=== PATIENT | female | born 1995 | race Caucasian/White ===

== ENCOUNTER 2017-06-19 06:13 | Inpatient (IN) ==
[2017-06-19] MEDS ORDERED: ONDANSETRON 4 MG/2 ML VIAL IV PRN (07:24)
[2017-06-19] MEDS ORDERED: BUTORPHANOL 2 MG/ML VIAL IV PRN (07:29)
[2017-06-19] MEDS ORDERED: MEPERIDINE 50 MG/1 ML VIAL IV PRN (07:29)
[2017-06-19] MEDS ORDERED: OXYTOCIN/LR 20 UNIT/1,000 ML BAG IV SCH (07:30)
[2017-06-19] MEDS ORDERED: LACTATED RINGERS 1,000 ML IV SCH (07:30)
[2017-06-19 08:08] LABS: Basophils % 0.4 % (0.0-0.8); Eosinophils % 0.2 % (0.00-10.9); Hematocrit 38.4 VOL% (35.7-47.0); Hemoglobin 13.1 GM/DL (12.0-16.0); Immature Granulocytes % 0.6 %; Immature Granulocytes Absolute 0.06 #; Lymphocytes # 1.8 10*3/uL (1.4-4.0); Lymphocytes % 17.7 % (21.3-54.2); Mean Corpuscular HGB Conc 34.1 GM/DL (32-36); Mean Corpuscular Hemoglobin 30 PG (27-34); Mean Corpuscular Volume 87.9 FL (87-102); Mean Platelet Volume 10.4 FL (9.6-12.0); Monocytes # 0.7 10*3/uL (0.11-0.8); Monocytes % 6.7 % (1.7-12.7); Neutrophils # 7.4 10*3/uL (1.4-7.4); Neutrophils % 74.4 % (38.7-73.9); Platelet Count 220 T/CUMM (130-400); Red Blood Count 4.37 MC/CUMM (3.8-5.5); Red Cell Distribution Width 12.7 % (9.3-17.3); White Blood Count 9.9 T/CUMM (4-12)
[2017-06-19 08:49] LABS: Alanine Aminotransferase 12 U/L (13-56); Albumin 2.8 G/DL (3.4-5.0); Alkaline Phosphatase 292 U/L (45-117); Aspartate Amino Transferase 12 U/L (0-37); Bilirubin,Total < 0.39 MG/DL (0.2-1.0); Blood Urea Nitrogen 11 MG/DL (7-18); Calcium 8.9 MG/DL (8.5-10.1); Glucose 72 MG/DL (74-106); Osmolality,Calculated 272.7 MOS/KG (273-304); Potassium 4.4 MMOL/L (3.5-5.1); Sodium 138 MMOL/L (136-145); Total Protein 6.5 G/DL (6.4-8.3)
--- NOTE | 2017-06-19 09:23 | OB/GYN History & Physical ---
History of Present Illness Chief complaint: For elective induction of labor due to term . History of present illness: Ms. Hernandez is a 21 year old female who is a primigravida. Her GAL is 2016 for an estimated gestational age of 39 weeks and 4 days. The patient presents for elective induction of labor due to term . The risk and benefits have been thoroughly discussed with this patient and significant other , plan of care has been discussed with Dr. Barreto and all parties are in agreement with plan. She received her care at the [facility] and her course was uneventful. labs: She is a positive, rubella is immune, RPR is nonreactive, hepatitis B negative, HIV negative, GBS culture negative. Review of systems negative with exception of above. Home Medications Medication Instructions Recorded Confirmed Type Vit No.130/Iron/Folic 1 tablet PO DAILY 03/04/17 03/04/17 History [ Tablet] Allergies Allergy/AdvReac Type Severity Reaction Status Date / Time sulfamethoxazole Allergy Severe Swelling Verified 09/23/16 23:06 [From Bactrim] Throat,Body/Hives/High Fever trimethoprim [From Bactrim] Allergy Severe Swelling Verified 09/23/16 23:06 Throat,Body/Hives/High Fever 12 point system: reviewed and no additional remarkable complaints except as stated Medical,Surgical,& Family Hx - Medical History Psychological: History of: Anxiety Disorders, ADHD (Inattentive Type) Neurology: History of: Seizures Gastrointestinal: History of: GI Problems (ulcers, over active colon) - Surgical History HEENT Surgeries: Surgical HX of: Tonsilectomy & Adenoidectomy Orthopedic Surgeries: Surgical HX of;: Orthopedic Surgery (Knee surgery) - Family History Family History: Reports;: Family Cancer (GF), Family Diabetes (MGM), Family Hypertension (MOTHER) - Social History Smoking Status: Never smoker Frequency of Alcohol Use: None Type of Drug Use: None Marital Status: Single Lives With:: Significant Other Functional capacity: independent ambulation Exam WATER VESSEL CAPTAIN - Constitutional Vitals: Vital Signs Temp Pulse Resp BP Pulse Ox 06/19/17 08:00 97.0 F L 107 H 20 137/84 99 General appearance: no acute distress - Antepartum / Post Antepartum Exam Cervix - Dilatation: 5 cm Effacement: 80% Station: -1 Rupture: Intact Presentation: Vertex Heart Rate: 150s Breast: bilateral: normal Abdomen obstetrics: Present: bowel sounds normal Vagina: Present: normal moisture, discharge (Light lochia rubra) Uterus exam: Present: enlarged Anus/Rectum: Present: normal perianal skin - Head Head exam: Present: normal inspection - Respiratory Respiratory exam: Present: clear to auscultation bilaterally - Cardiovascular Cardiovascular exam: Present: regular rate and rhythm - GI/Abdominal GI/Abdominal exam: Present: normal bowel sounds, soft - Extremities Exam Extremities exam: Present: normal inspection - Back Exam Back exam: Present: normal inspection - Neurological Exam Neurological exam: Present: alert, oriented X3 - Psychiatric Psychiatric exam: Present: normal affect, normal mood - Skin Skin exam: Present: normal color, warm Assessment and Plan (1) 39 weeks gestation of Status: Acute Assessment and plan: Admit IV fluids IV Pitocin per protocol Artificial rupture membranes when appropriate Internal monitor is indicated Epidural anesthesia if desired IV pain meds if desired Anticipate Current Visit: Yes Results - Labs CBC & BMP: 06/19/17 08:01 06/19/17 08:01
[2017-06-19] MEDS ORDERED: CITRIC ACID/SODIUM CITRATE 30 ML UDCUP PO ONE (10:15)
[2017-06-19] MEDS ORDERED: ONDANSETRON 4 MG/2 ML VIAL IV ONE (10:15)
[2017-06-19] MEDS ORDERED: PROMETHAZINE 25 MG/1 ML VIAL IM ONE (10:15)
[2017-06-19] MEDS ORDERED: hydrOXYzine HCL 25 MG/1 ML VIAL IM PRN (10:15)
[2017-06-19] MEDS ORDERED: fentaNYL 2 MCG/ROPIV 0.2% EPID 150 ML EPIDURAL SCH (10:15)
[2017-06-19] MEDS ORDERED: diphenhydrAMINE 50 MG/1 ML VIAL IV PRN ×2 (10:15)
[2017-06-19] MEDS ORDERED: FAMOTIDINE 20 MG/2 ML VIAL IV ONE (10:15)
[2017-06-19] MEDS ORDERED: LACTATED RINGERS 1,000 ML IV ONE (10:15)
[2017-06-19] MEDS ORDERED: ePHEDrine 50 MG/ML AMP IV PRN (10:15)
--- NOTE | 2017-06-19 11:52 | Event Note ---
HPI: Ms. Lechuga presents to the labor department for elective induction of labor due to term . The risk and benefits of been thoroughly discussed with the patient and significant other, plan of care has been discussed with Dr. Barreto and all parties are in agreement plan. Stage I: The patient was admitted she received IV fluids and IV Pitocin per protocol. Artificial rupture membranes was performed clear fluid noted. She received an epidural for pain control. She progressed in labor with a CAT 1 tracing. She had an uneventful course of labor. Stage II the patient was complete and complained of present desire to push. She pushed for approximately 20 minutes after which time a second-degree midline episiotomy was performed; the infant's head was delivered. The mouth and nose were suctioned on the perineum. The remainder the was delivered at 1131, a viable female infant was noted. Apgars were 8 at 1 minute and 9 at 5 minutes. weight was 5 lbs. 13 oz. A cord pH was obtained and sent to the lab. The infant was then placed on the mom's abdomen for skin to skin bonding. Stage III: Spontaneous delivery of a Jimenez placenta with a three-vessel cord noted. Placenta was further examined appeared to be grossly intact. The vagina cervix inspected with no additional tears or lacerations noted. The episiotomy was repaired in the usual fashion. Epidural anesthesia remain in effect on repair. Estimated blood loss was approximately 150 cc. At the time of dictation mother and baby are both in stable condition.
[2017-06-19] MEDS ORDERED: ACETAMINOPHEN/CODEINE 300-30 MG TABLET PO PRN (11:54)
[2017-06-19 12:14] LABS: Cord Arterial Blood HCO3 17.2 MMOL/L
[2017-06-19 12:16] LABS: Cord Venous Blood HCO3 16.1 MMOL/L
[2017-06-19] MEDS ORDERED: oxyCODONE/ACETAMINOPHEN 5-325 MG TABLET PO PRN (15:12)
[2017-06-19] MEDS ORDERED: ACETAMINOPHEN 325 MG TABLET PO PRN (15:12)
[2017-06-19] MEDS ORDERED: DIPH/TET/ACEL PERT BOOSTER VACCINE 0.5 ML VIAL IM ONE (15:12)
[2017-06-19] MEDS ORDERED: LANOLIN 50% CREAM 0.3 OZ TUBE TOP PRN (15:12)
[2017-06-19] MEDS ORDERED: HYDROCORTISONE 2.5% RECTAL CREAM 30 GM TUBE TOP PRN (15:12)
[2017-06-19] MEDS ORDERED: BENZOCAINE 20%/MENTHOL 0.5% SPRAY 56 GM CAN TOP PRN (15:12)
[2017-06-19] MEDS ORDERED: WITCH HAZEL PADS 100/JAR TOP PRN (15:12)
[2017-06-19] MEDS ORDERED: BISACODYL 10 MG SUPP RECTAL PRN (15:12)
[2017-06-19] MEDS ORDERED: RHO(D) IMMUNE GLOBULIN 300 MCG SYRINGE IM ONE (15:12)
[2017-06-19] MEDS ORDERED: MEASLES/MUMPS/RUBELLA VACCINE 0.5 ML VIAL SUBCUT ONE (15:12)
--- NOTE | 2017-06-19 16:52 | Anesthesia Post-Op ---
Anesthesia Post OP - Post Ansesthetic Evaluation Patient seen in post op: Yes Resp: within normal limits CV: within normal limits Mental: within normal limits Temp: within normal limits [id number]-[id number]: within normal limits Nausea and Vomiting: within normal limits Pain: within normal limits
[2017-06-19] MEDS: IBUPROFEN 800 MG TABLET PO PRN (18:22)
[2017-06-19] MEDS: DOCUSATE SODIUM 100 MG CAPSULE PO SCH (20:59)
[2017-06-20] MEDS: IBUPROFEN 800 MG TABLET PO PRN ×2 (06:02→15:29)
[2017-06-20 06:10] LABS: Basophils % 0.3 % (0.0-0.8); Eosinophils % 0.3 % (0.00-10.9); Hematocrit 34.1 VOL% (35.7-47.0); Hemoglobin 11.6 GM/DL (12.0-16.0); Immature Granulocytes % 0.4 %; Immature Granulocytes Absolute 0.04 #; Lymphocytes # 1.8 10*3/uL (1.4-4.0); Lymphocytes % 18.5 % (21.3-54.2); Mean Corpuscular Hemoglobin 30 PG (27-34); Mean Corpuscular Volume 89.3 FL (87-102); Mean Platelet Volume 10.6 FL (9.6-12.0); Monocytes # 0.8 10*3/uL (0.11-0.8); Monocytes % 8.1 % (1.7-12.7); Neutrophils # 6.9 10*3/uL (1.4-7.4); Neutrophils % 72.4 % (38.7-73.9); Platelet Count 189 T/CUMM (130-400); Red Blood Count 3.82 MC/CUMM (3.8-5.5); Red Cell Distribution Width 12.9 % (9.3-17.3); White Blood Count 9.6 T/CUMM (4-12)
[2017-06-20] MEDS: DOCUSATE SODIUM 100 MG CAPSULE PO SCH ×2 (09:19→20:42)
--- NOTE | 2017-06-20 09:35 | OB/GYN Progress Note ---
Assessment and Plan (1) 39 weeks gestation of Status: Acute Assessment and plan: Admit IV fluids IV Pitocin per protocol Artificial rupture membranes when appropriate Internal monitor is indicated Epidural anesthesia if desired IV pain meds if desired Anticipate Current Visit: Yes (2) Vaginal delivery Status: Acute Assessment and plan: Initiate routine orders. 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 Bonding well with infant. Exam FIRE FIGHTERS DISPATCHER - Constitutional Vitals: Vital Signs Temp Pulse Resp BP Pulse Ox 06/20/17 08:00 97.5 F L 92 H 18 119/72 97 06/20/17 03:57 96.8 F L 84 20 104/60 98 06/20/17 00:00 98.9 F 96 H 20 112/59 100 06/19/17 23:00 20 06/19/17 19:30 97.8 F 97 H 20 116/81 98 06/19/17 18:30 18 06/19/17 18:00 88 18 116/72 98 06/19/17 17:00 99 H 18 116/84 99 06/19/17 16:00 97.8 F 101 H 18 118/71 98 06/19/17 15:30 105 H 18 125/72 99 06/19/17 15:00 97.4 F L 104 H 18 117/73 97 General appearance: no acute distress - Antepartum / Post Post Exam Breast: bilateral: normal Abdomen obstetrics: Present: bowel sounds normal Vagina: Present: normal moisture, discharge (Light lochia rubra) Uterus exam: Present: enlarged (Fundus firm midline) Anus/Rectum: Present: normal perianal skin - Head Head exam: Present: normal inspection - Respiratory Respiratory exam: Present: clear to auscultation bilaterally - Cardiovascular Cardiovascular exam: Present: regular rate and rhythm - GI/Abdominal GI/Abdominal exam: Present: normal bowel sounds, soft - Extremities Exam Extremities exam: Present: normal inspection - Neurological Exam Neurological exam: Present: alert, oriented X3 - Psychiatric Psychiatric exam: Present: normal affect, normal mood - Skin Skin exam: Present: normal color, warm Results - Labs CBC & BMP: 06/20/17 05:48 06/19/17 08:01
[2017-06-20] MEDS: oxyCODONE/ACETAMINOPHEN 5-325 MG TABLET PO PRN (15:31)
[2017-06-21] MEDS: oxyCODONE/ACETAMINOPHEN 5-325 MG TABLET PO PRN (07:35)
[2017-06-21] MEDS: IBUPROFEN 800 MG TABLET PO PRN (07:36)
[2017-06-21] MEDS: DOCUSATE SODIUM 100 MG CAPSULE PO SCH (08:43)
[2017-06-21 12:22] VITALS: BP 123/81
--- NOTE | 2017-06-21 15:09 | Discharge Summary ---
Hospital Course - Hospital Course Hospital Course: Ms. Neumann presented to the labor department for elective induction of labor due to term . She subsequently delivered a viable with no complications. She is followed a normal postoperative course and she has done well. Her bleeding is minimal with no odor. Her fundus is firm midline. Her perineum is intact with no edema or tenderness. She is bonding well with her . Her vital signs and lab values are stable. Contraception options has been discussed with this patient and her significant other, they plan on using condoms for now. She will be discharged home prescriptions for pain and follow- up appointment in our office. Diagnosis - Discharge Diagnosis (1) 39 weeks gestation of Status: Acute (2) Vaginal delivery Status: Acute Specialty Discharge - Follow Up or Referrals Follow up with: Gloria Barreto MD [Physician] - (Follow-up in 6 weeks.) Discharge Plan - Discharge Data Disposition: Disch To Home/Self Care Condition at Discharge: Stable Discharge Diet: advance to your usual diet Activity: resume usual activities as tolerated Hygiene: no restrictions Weight Bearing at Discharge: weight bear as tolerated Driving: no restrictions Contact your physician if you experience:: fever over 101, pain uncontrolled by pain medications - Discharge Medications New Ibuprofen Tab [Motrin Tab] 800 mg PO Q6H PRN #30 tablet PRN Reason: Pain Moderate (4-7) Acetamin/Codeine 300-30 Tab [Tylenol/Codeine #3] 2 tablet PO Q4H PRN #30 tablet PRN Reason: Pain Mild (1-3) No Action Vit No.130/Iron/Folic [ Tablet] 1 tablet PO DAILY - Follow Up or Referral - Forms/Instructions Exam - Constitutional Vitals: Period Temp Pulse Resp BP Sys/Giordano Pulse Ox Last 24 Hr 96.2 F-98.3 F 78-110 16-20 115-129/71-85 97-100 General appearance: no acute distress - Respiratory Respiratory exam: Present: clear to auscultation bilaterally - Cardiovascular Cardiovascular exam: Present: regular rate and rhythm - GI/Abdominal GI/Abdominal exam: Present: normal bowel sounds, soft - Extremities Exam Extremities exam: Present: normal inspection - Neurological Exam Neurological exam: Present: alert, oriented X3 - Psychiatric Psychiatric exam: Present: normal affect, normal mood - Skin Skin exam: Present: normal color, warm DS: Provider Date of admission: 06/19/17 06:14 Primary care physician: . No PCP Attending physician on admission: Gloria Barreto MD Consults: 06/19/17 07:24 Consult to Anesthesiology [CONS] Routine Consulting Provider: Reason for Anesthesiology: Epidural Consult Comment: Epidural for pain managment 06/19/17 15:12 Consult to Contract Writer [CONS] Routine Consult Contract Writer: Breast Feeding Discharging clinician: Samantha Monzon CNM Expected date of discharge: 06/21/17
== END 2017-06-21 15:50 | disposition home or self-care (01) | DRG 775 ==
LOC: N.LDOUT 06:13 → N.LD 06:14 → N.OB 14:52
PROVIDERS: ADMIT Obstetrics & Gynecology; ATTEND Obstetrics & Gynecology